=== PATIENT | female | born 1995 | race Caucasian/White ===

== ENCOUNTER 2022-04-06 11:54 | Outpatient (CLI) | payer OTHER ==
[2022-04-06] MEDS ORDERED: Iopamidol 300 61% 100 ML VIAL FS ONE (16:11)
== END 2022-04-06 11:55 | disposition home or self-care (01) ==
LOC: CSHRAD 11:54
PROVIDERS: ATTEND Otolaryngology
DX: R13.11 Dysphagia, oral phase (principal); R59.0 Localized enlarged lymph nodes
CPT/HCPCS: 70491; 74220; Q9967